=== PATIENT | female | born 1965 | race Caucasian/White ===

== ENCOUNTER 2017-08-30 13:43 | Emergency (ER) | payer OTHER ==
[2017-08-30 13:45] VITALS: BP 133/70; PULSE 104; RESP 15; TEMP 98.4; O2SAT 97
--- NOTE | 2017-08-30 14:46 | PD ---
HPI Chief Complaint: Pain: Acute or Chronic Time Seen by Provider: 14:37 Travel History International Travel<30 days: No Contact w/Intl Traveler<30days: No Traveled to known affect area: No History of Present Illness HPI 52-year-old female with a past medical history of hemorrhoids presents to the emergency department for evaluation of rectal pain. She states she has an upcoming appointment with her primary care physician, but couldn't wait that long. She seized [id number] Preparation H without improvement. Patient denies any fevers or chills. No shortness breath. No nausea, vomiting, diarrhea. She states it hurts bowel movement and when she has "relations". Patient states that she had a colonoscopy done in April 2017 which show she has small internal hemorrhoid. She had no other findings. She states she had a normal Pap smear recently. She is undergoing radiation for breast cancer. No chemotherapy. She has history of hypertension. She has no other medical complaints at this time. She denies any rectal bleeding. Patient states that the pain is not at the anus, but "internal". PFSH Social History Alcohol Use: No Tobacco Use: No Substance Use: No Allergies-Medications (Allergen,Severity, Reaction): Coded Allergies: hydromorphone (Verified Adverse Reaction, Unknown, PALPITATIONS, 08/30/17) Reported Meds & Prescriptions Reported Meds & Active Scripts Active Reported Multi-Vitamin Daily (Multiple Vitamin) 1 Tab Tab 1 Tab PO DAILY Clonazepam 0.5 Mg Tab 0.5 Mg PO DAILY Dicyclomine (Dicyclomine HCl) 10 Mg Cap 10 Mg PO DAILY Review of Systems Except as stated in HPI: all other systems reviewed are Neg Physical Exam Narrative GENERAL: Well-nourished, well-developed female patient, ambulatory. Afebrile. SKIN: Focused skin assessment warm/dry. HEAD: Normocephalic. Atraumatic. EYES: No scleral icterus. No injection or drainage. NECK: Supple, trachea midline. No JVD or lymphadenopathy. CARDIOVASCULAR: Regular rate and rhythm without murmurs, gallops, or rubs. RESPIRATORY: Breath sounds equal bilaterally. No accessory muscle use. Lungs sounds are clear to auscultation. GASTROINTESTINAL: Abdomen soft and nondistended. Patient has lower abdominal pain to palpation. MUSCULOSKELETAL: No cyanosis, or edema. BACK: Nontender without obvious deformity. No CVA tenderness. RECTAL EXAM: No masses or tenderness, stool is brown. This exam was done with CHARLES Mensah, at bedside. Data Data Last Documented VS Vital Signs Date Time Temp Pulse Resp B/P (MAP) Pulse Ox O2 Delivery O2 Flow Rate FiO2 08/30/17 15:13 16 99 Room Air 08/30/17 13:45 98.4 104 Orders Orders Complete Blood Count With Diff (08/30/17 14:46) Comprehensive Metabolic Panel (08/30/17 14:46) Lipase (08/30/17 14:46) Prothrombin Time / Inr (Pt) (08/30/17 14:46) Act Partial Throm Time (Ptt) (08/30/17 14:46) Urinalysis - C+S If Indicated (08/30/17 14:46) Ct Abd/Pel W Iv Contrast(Rout) (08/30/17 14:46) Iv Access Insert/Monitor (08/30/17 14:46) Ecg Monitoring (08/30/17 14:46) Oximetry (08/30/17 14:46) Sodium Chloride 0.9% Flush (Ns Flush) (08/30/17 15:00) Iohexol 350 Inj (Omnipaque 350 Inj) (08/30/17 17:00) Labs Laboratory Tests Test 08/30/17 15:15 White Blood Count 5.4 TH/MM3 Red Blood Count 4.44 MIL/MM3 Hemoglobin 13.5 GM/DL Hematocrit 40.6 % Mean Corpuscular Volume 91.5 FL Mean Corpuscular Hemoglobin 30.4 PG Mean Corpuscular Hemoglobin Concent 33.3 % Red Cell Distribution Width 12.8 % Platelet Count 215 TH/MM3 Mean Platelet Volume 9.6 FL Neutrophils (%) (Auto) 66.3 % Lymphocytes (%) (Auto) 21.2 % Monocytes (%) (Auto) 11.1 % Eosinophils (%) (Auto) 1.0 % Basophils (%) (Auto) 0.4 % Neutrophils # (Auto) 3.6 TH/MM3 Lymphocytes # (Auto) 1.2 TH/MM3 Monocytes # (Auto) 0.6 TH/MM3 Eosinophils # (Auto) 0.1 TH/MM3 Basophils # (Auto) 0.0 TH/MM3 CBC Comment DIFF FINAL Differential Comment Prothrombin Time 10.3 SEC Prothromb Time International Ratio 0.9 RATIO Activated Partial Thromboplast Time 25.2 SEC Urine Color LIGHT-YELLOW Urine Turbidity CLEAR Urine pH 7.5 Urine Specific [place] 1.004 Urine Protein NEG mg/dL Urine Glucose (UA) NEG mg/dL Urine Ketones NEG mg/dL Urine Occult Blood NEG Urine Nitrite NEG Urine Bilirubin NEG Urine Urobilinogen LESS THAN 2.0 MG/DL Urine Leukocyte Esterase NEG Urine RBC 1 /hpf Urine WBC LESS THAN 1 /hpf Urine Squamous Epithelial Cells <1 /hpf Urine Bacteria RARE /hpf Microscopic Urinalysis Comment CULT NOT INDICATED Blood Urea Nitrogen 7 MG/DL Creatinine 0.57 MG/DL Random Glucose 78 MG/DL Total Protein 7.6 GM/DL Albumin 4.0 GM/DL Calcium Level 9.1 MG/DL Alkaline Phosphatase 60 U/L Aspartate Amino Transf (AST/SGOT) 25 U/L Alanine Aminotransferase (ALT/SGPT) 42 U/L Total Bilirubin 0.5 MG/DL Sodium Level 139 MEQ/L Potassium Level 4.2 MEQ/L Chloride Level 104 MEQ/L Carbon Dioxide Level 31.4 MEQ/L Anion Gap 4 MEQ/L Estimat Glomerular Filtration Rate 111 ML/MIN Lipase 480 U/L [facility] Medical Decision Making Medical Screen Exam Complete: Yes Emergency Medical Condition: Yes Medical Record Reviewed: Yes Differential Diagnosis UTI versus ovarian cyst versus diverticulitis versus colitis versus hemorrhoid Narrative Course 52-year-old female presents to the emergency department for evaluation of lower abdominal pain, rectal pain. Patient was originally placed in fast track area taking that she possibly has hemorrhoid. However, the patient is having abdominal pain to palpation. The patient was transferred from fast track to medical pod. CBC, CMP, lipase, UA are ordered and pending. CT abdomen/pelvis with IV contrast is ordered and pending. CBC shows no acute abnormality. CMP shows no acute abnormality. Lipase is 480. UA is negative for acute infection. CT abdomen/pelvis shows horseshoe kidney otherwise unremarkable CT scan of the abdomen and pelvis. Patient is requesting medication for hemorrhoids. Her colonoscopy done in April did show internal hemorrhoid. Patient will be discharged with a prescription for suppository, Proctofoam. She is encouraged to follow-up with her primary care physician. She is to return here for any acute worsening of symptoms. Patient verbalizes agreement and understanding. The patient was discharged in stable condition with instructions, including return instructions and follow up instructions. Diagnosis Primary Impression: Hemorrhoids Qualified Codes: K64.9 - Unspecified hemorrhoids Additional Impression: Abdominal pain Qualified Codes: R10.30 - Lower abdominal pain, unspecified Referrals: Primary Care Physician call for appointment Patient Instructions: Abdominal Pain (ED), General Instructions, Hemorrhoids ( ED) Additional Instructions: Use hydrocortisone suppository as directed as needed. Use Proctofoam as directed as needed. Follow-up with your primary care physician. Return to the emergency department for any acute worsening of symptoms. Med/Other Pt SpecificInfo: Prescription(s) given Scripts Pramoxine Topical (Rectal Foam) (Proctofoam Topical (Rectal Foam)) 1% Foam 1 APPLIC TOPICAL QID Y for ITCHING, #15 GM 0 Refills Prov: Ekaterina Leblanc 08/30/17 Hydrocortisone Supp (Anusol-Hc Supp) 25 Mg Supp 25 MG RECTAL BID, #24 SUPP Prov: Ekaterina Leblanc 08/30/17 Disposition: 01 DISCHARGE HOME Condition: Stable Ekaterina Leblanc Aug 30, 2017 14:46
[2017-08-30] MEDS ORDERED: SODIUM CHLORIDE 0.9% FLUSH 10 ML FLUSH IV FLUSH PRN (15:00)
[2017-08-30 15:13] VITALS: RESP 16; O2SAT 99
[2017-08-30] MEDS ORDERED: MULT-65 PO (15:13)
[2017-08-30] MEDS ORDERED: CLON0.5T PO (15:13)
[2017-08-30] MEDS ORDERED: DICY10CA12 PO (15:13)
[2017-08-30 15:28] LABS: AUTOMATED NEUTROPHIL # 3.6 TH/MM3 (1.8-7.7); BASOPHIL % 0.4 % (0.0-2.0); EOSINOPHIL # 0.1 TH/MM3 (0-0.4); HEMATOCRIT 40.6 % (35.0-46.0); HEMO FLAGS DIFF FINAL; LYMPH % 21.2 % (9.0-44.0); LYMPHOCYTE # 1.2 TH/MM3 (1.0-4.8); MEAN CELL VOLUME 91.5 FL (80.0-100.0); MEAN CORPUSCULAR HEMOGLOBIN 30.4 PG (27.0-34.0); MEAN CORPUSCULAR HGB CONC 33.3 % (32.0-36.0); MONO % 11.1 % (0.0-8.0); NEUT % 66.3 % (16.0-70.0); PLATELET COUNT 215 TH/MM3 (150-450); RED BLOOD COUNT 4.44 MIL/MM3 (4.00-5.30); RED CELL DISTRIBUTION WIDTH 12.8 % (11.6-17.2); WHITE BLOOD COUNT 5.4 TH/MM3 (4.0-11.0)
[2017-08-30 15:39] LABS: APTT (PATIENT) 25.2 SEC (24.3-30.1); INTERNATIONAL NORMALIZED RATIO 0.9 RATIO; PROTHROMBIN TIME - PATIENT 10.3 SEC (9.8-11.6)
[2017-08-30 15:45] LABS: BACTERIA, URINE RARE /hpf; BLOOD, URINE NEG (NEG); GLUCOSE,URINE NEG (NEG); KETONE, URINE NEG (NEG); NITRITE,URINE NEG (NEG); PH, URINE 7.5 (5.0-8.5); SQUAMOUS EPITHELIAL CELL URINE <1 /hpf (0-5); URINE COLOR LIGHT-YELLOW (YELLW/STRAW)
[2017-08-30 15:46] LABS: COMMENT (UR) CULT NOT INDICATED; CULTURE IF INDICATED CULT NOT INDICATED
[2017-08-30 15:54] LABS: ALT (GPT) 42 U/L (10-53); ANION GAP 4 MEQ/L (5-15); AST (GOT) 25 U/L (15-37); BICARBONATE 31.4 MEQ/L (21.0-32.0); BLOOD UREA NITROGEN 7 MG/DL (7-18); CHLORIDE 104 MEQ/L (98-107); GLOMERULAR FILTRATION RATE 111 ML/MIN (>89); POTASSIUM 4.2 MEQ/L (3.5-5.1); SODIUM (NA) 139 MEQ/L (136-145)
[2017-08-30 15:57] LABS: ALKALINE PHOSPHATASE 60 U/L (45-117); TOTAL BILIRUBIN ADULT 0.5 MG/DL (0.2-1.0)
[2017-08-30] MEDS ORDERED: IOHEXOL 350 MG/ML 10 ML VIAL (for RAD DIAG) IVCONTRAST ONE (17:00)
--- NOTE | 2017-08-30 17:23 | RADRPT ---
EXAM DATE/TIME: 08/30/2017 16:50 [place] COMPARISON: No previous studies available for comparison. INDICATIONS : Rectal pain for one week. IV CONTRAST: 72 cc Omnipaque 350 (iohexol) IV ORAL CONTRAST: No oral contrast ingested. RADIATION DOSE: 9.96 CTDIvol (mGy) MEDICAL HISTORY : Carcinoma, breast. SURGICAL HISTORY : None. ENCOUNTER: Initial ACUITY: 1 week PAIN SCALE: 7/10 LOCATION: rectum TECHNIQUE: Volumetric scanning of the abdomen and pelvis was performed. Using automated exposure control and ad justment of the mA and/or kV according to patient size, radiation dose was kept as low as reasonably achievable to obtain optimal diagnostic quality images. DICOM format image data is available electro nically for review and comparison. FINDINGS: LOWER LUNGS: The visualized lower lungs are clear. LIVER: Homogeneous density without lesion. There is no dilation of the biliary tree. No calcified gallston es. SPLEEN: Normal size without lesion. PANCREAS: Within normal limits. KIDNEYS: Horseshoe kidney without evidence of mass or obstruction.. There is no stone or hydronephrosis. ADRENAL GLANDS: Within normal limits. VASCULAR: There is no aortic aneurysm. BOWEL/MESENTERY: The stomach, small bowel, and colon demonstrate no acute abnormality. There is no free intraperitone al air or fluid. ABDOMINAL WALL: Within normal limits. RETROPERITONEUM: There is no lymphadenopathy. BLADDER: No wall thickening or mass. REPRODUCTIVE: Within normal limits. INGUINAL: There is no lymphadenopathy or hernia. MUSCULOSKELETAL: Within normal limits for patient age. CONCLUSION: Horseshoe kidney otherwise unremarkable CT scan of the abdomen and pelvis Roshan Dennis MD on August 30, 2017 at 17:20 Board Certified Radiologist. This report was verified electronically.
[2017-08-30] MEDS ORDERED: ANUS25SU RECTAL (17:49)
[2017-08-30] MEDS ORDERED: PRAM1AER8 TOPICAL (17:49)
[2017-08-30] MEDS ORDERED: KETOROLAC TROMETHAMINE 30 MG/ML (IVP) VIAL IV PUSH ONE (18:15)
--- NOTE | 2017-08-30 19:29 | PD ---
HPI Chief Complaint: Pain: Acute or Chronic Time Seen by Provider: 19:28 Travel History International Travel<30 days: No Contact w/Intl Traveler<30days: No Traveled to known affect area: No PFSH Past Medical History Cancer: Yes (BREAST) Diminished Hearing: No Radiation Therapy: Yes (08/28/17) Tetanus Vaccination: Unknown Influenza Vaccination: No ?: Not Past Surgical History Section: Yes Social History Alcohol Use: No Tobacco Use: No Substance Use: No Allergies-Medications (Allergen,Severity, Reaction): Coded Allergies: hydromorphone (Verified Adverse Reaction, Unknown, PALPITATIONS, 08/30/17) Reported Meds & Prescriptions Reported Meds & Active Scripts Active Proctofoam Topical (Rectal Foam) (Pramoxine Topical (Rectal Foam)) 1% Foam 1 Applic TOPICAL QID PRN Anusol-Hc Supp (Hydrocortisone Supp) 25 Mg Supp 25 Mg RECTAL BID Reported Multi-Vitamin Daily (Multiple Vitamin) 1 Tab Tab 1 Tab PO DAILY Clonazepam 0.5 Mg Tab 0.5 Mg PO DAILY Dicyclomine (Dicyclomine HCl) 10 Mg Cap 10 Mg PO DAILY Data Data Last Documented VS Vital Signs Date Time Temp Pulse Resp B/P (MAP) Pulse Ox O2 Delivery O2 Flow Rate FiO2 08/30/17 19:46 08/30/17 15:13 16 99 Room Air 08/30/17 13:45 98.4 104 Orders Orders Complete Blood Count With Diff (08/30/17 14:46) Comprehensive Metabolic Panel (08/30/17 14:46) Lipase (08/30/17 14:46) Prothrombin Time / Inr (Pt) (08/30/17 14:46) Act Partial Throm Time (Ptt) (08/30/17 14:46) Urinalysis - C+S If Indicated (08/30/17 14:46) Ct Abd/Pel W Iv Contrast(Rout) (08/30/17 14:46) Iv Access Insert/Monitor (08/30/17 14:46) Ecg Monitoring (08/30/17 14:46) Oximetry (08/30/17 14:46) Sodium Chloride 0.9% Flush (Ns Flush) (08/30/17 15:00) Iohexol 350 Inj (Omnipaque 350 Inj) (08/30/17 17:00) Ketorolac Inj (Toradol Inj) (08/30/17 18:15) Labs Laboratory Tests Test 08/30/17 15:15 White Blood Count 5.4 TH/MM3 Red Blood Count 4.44 MIL/MM3 Hemoglobin 13.5 GM/DL Hematocrit 40.6 % Mean Corpuscular Volume 91.5 FL Mean Corpuscular Hemoglobin 30.4 PG Mean Corpuscular Hemoglobin Concent 33.3 % Red Cell Distribution Width 12.8 % Platelet Count 215 TH/MM3 Mean Platelet Volume 9.6 FL Neutrophils (%) (Auto) 66.3 % Lymphocytes (%) (Auto) 21.2 % Monocytes (%) (Auto) 11.1 % Eosinophils (%) (Auto) 1.0 % Basophils (%) (Auto) 0.4 % Neutrophils # (Auto) 3.6 TH/MM3 Lymphocytes # (Auto) 1.2 TH/MM3 Monocytes # (Auto) 0.6 TH/MM3 Eosinophils # (Auto) 0.1 TH/MM3 Basophils # (Auto) 0.0 TH/MM3 CBC Comment DIFF FINAL Differential Comment Prothrombin Time 10.3 SEC Prothromb Time International Ratio 0.9 RATIO Activated Partial Thromboplast Time 25.2 SEC Urine Color LIGHT-YELLOW Urine Turbidity CLEAR Urine pH 7.5 Urine Specific [place] 1.004 Urine Protein NEG mg/dL Urine Glucose (UA) NEG mg/dL Urine Ketones NEG mg/dL Urine Occult Blood NEG Urine Nitrite NEG Urine Bilirubin NEG Urine Urobilinogen LESS THAN 2.0 MG/DL Urine Leukocyte Esterase NEG Urine RBC 1 /hpf Urine WBC LESS THAN 1 /hpf Urine Squamous Epithelial Cells <1 /hpf Urine Bacteria RARE /hpf Microscopic Urinalysis Comment CULT NOT INDICATED Blood Urea Nitrogen 7 MG/DL Creatinine 0.57 MG/DL Random Glucose 78 MG/DL Total Protein 7.6 GM/DL Albumin 4.0 GM/DL Calcium Level 9.1 MG/DL Alkaline Phosphatase 60 U/L Aspartate Amino Transf (AST/SGOT) 25 U/L Alanine Aminotransferase (ALT/SGPT) 42 U/L Total Bilirubin 0.5 MG/DL Sodium Level 139 MEQ/L Potassium Level 4.2 MEQ/L Chloride Level 104 MEQ/L Carbon Dioxide Level 31.4 MEQ/L Anion Gap 4 MEQ/L Estimat Glomerular Filtration Rate 111 ML/MIN Lipase 480 U/L [facility] Medical Decision Making Medical Screen Exam Complete: Yes Emergency Medical Condition: Yes Diagnosis Primary Impression: Hemorrhoids Qualified Codes: K64.9 - Unspecified hemorrhoids Additional Impression: Abdominal pain Qualified Codes: R10.30 - Lower abdominal pain, unspecified Referrals: Mahogany Dixon MD, Ammar MD Ritter,Richard Reed MD Primary Care Physician call for appointment Patient Instructions: General Instructions, Hemorrhoids (ED), Abdominal Pain ( ED) Departure Forms: Tests/Procedures Additional Instructions: Use hydrocortisone suppository as directed as needed. Use Proctofoam as directed as needed. Follow-up with your primary care physician. Return to the emergency department for any acute worsening of symptoms. Scripts Pramoxine Topical (Rectal Foam) (Proctofoam Topical (Rectal Foam)) 1% Foam 1 APPLIC TOPICAL QID Y for ITCHING, #15 GM 0 Refills Prov: Ekaterina Leblanc 08/30/17 Hydrocortisone Supp (Anusol-Hc Supp) 25 Mg Supp 25 MG RECTAL BID, #24 SUPP Prov: Ekaterina Leblanc 08/30/17 Disposition: 01 DISCHARGE HOME Condition: Stable Nelson Maldonado MD Aug 30, 2017 19:29
--- NOTE | 2017-09-01 01:10 | PD ---
Data Data Last Documented VS Vital Signs Date Time Temp Pulse Resp B/P (MAP) Pulse Ox O2 Delivery O2 Flow Rate FiO2 08/30/17 19:46 08/30/17 15:13 16 99 Room Air 08/30/17 13:45 98.4 104 Orders Orders Complete Blood Count With Diff (08/30/17 14:46) Comprehensive Metabolic Panel (08/30/17 14:46) Lipase (08/30/17 14:46) Prothrombin Time / Inr (Pt) (08/30/17 14:46) Act Partial Throm Time (Ptt) (08/30/17 14:46) Urinalysis - C+S If Indicated (08/30/17 14:46) Ct Abd/Pel W Iv Contrast(Rout) (08/30/17 14:46) Iv Access Insert/Monitor (08/30/17 14:46) Ecg Monitoring (08/30/17 14:46) Oximetry (08/30/17 14:46) Sodium Chloride 0.9% Flush (Ns Flush) (08/30/17 15:00) Iohexol 350 Inj (Omnipaque 350 Inj) (08/30/17 17:00) Ketorolac Inj (Toradol Inj) (08/30/17 18:15) Labs Laboratory Tests Test 08/30/17 15:15 White Blood Count 5.4 TH/MM3 Red Blood Count 4.44 MIL/MM3 Hemoglobin 13.5 GM/DL Hematocrit 40.6 % Mean Corpuscular Volume 91.5 FL Mean Corpuscular Hemoglobin 30.4 PG Mean Corpuscular Hemoglobin Concent 33.3 % Red Cell Distribution Width 12.8 % Platelet Count 215 TH/MM3 Mean Platelet Volume 9.6 FL Neutrophils (%) (Auto) 66.3 % Lymphocytes (%) (Auto) 21.2 % Monocytes (%) (Auto) 11.1 % Eosinophils (%) (Auto) 1.0 % Basophils (%) (Auto) 0.4 % Neutrophils # (Auto) 3.6 TH/MM3 Lymphocytes # (Auto) 1.2 TH/MM3 Monocytes # (Auto) 0.6 TH/MM3 Eosinophils # (Auto) 0.1 TH/MM3 Basophils # (Auto) 0.0 TH/MM3 CBC Comment DIFF FINAL Differential Comment Prothrombin Time 10.3 SEC Prothromb Time International Ratio 0.9 RATIO Activated Partial Thromboplast Time 25.2 SEC Urine Color LIGHT-YELLOW Urine Turbidity CLEAR Urine pH 7.5 Urine Specific [place] 1.004 Urine Protein NEG mg/dL Urine Glucose (UA) NEG mg/dL Urine Ketones NEG mg/dL Urine Occult Blood NEG Urine Nitrite NEG Urine Bilirubin NEG Urine Urobilinogen LESS THAN 2.0 MG/DL Urine Leukocyte Esterase NEG Urine RBC 1 /hpf Urine WBC LESS THAN 1 /hpf Urine Squamous Epithelial Cells <1 /hpf Urine Bacteria RARE /hpf Microscopic Urinalysis Comment CULT NOT INDICATED Blood Urea Nitrogen 7 MG/DL Creatinine 0.57 MG/DL Random Glucose 78 MG/DL Total Protein 7.6 GM/DL Albumin 4.0 GM/DL Calcium Level 9.1 MG/DL Alkaline Phosphatase 60 U/L Aspartate Amino Transf (AST/SGOT) 25 U/L Alanine Aminotransferase (ALT/SGPT) 42 U/L Total Bilirubin 0.5 MG/DL Sodium Level 139 MEQ/L Potassium Level 4.2 MEQ/L Chloride Level 104 MEQ/L Carbon Dioxide Level 31.4 MEQ/L Anion Gap 4 MEQ/L Estimat Glomerular Filtration Rate 111 ML/MIN Lipase 480 U/L MDM Supervised Visit with PHYLICIA: Yes Narrative Course I, Dr. Maldonado, have reviewed the advance practice practitioner's documentation and am in agreement, met with the patient face to face, made the diagnosis, and the medical decision making was done by me. *My assessment and Findings: Patient seen and examined by me in addition to Ekaterina ARAUJO. Patient had appropriate workup including CAT scan of her abdomen for rectal pain. Patient states she's been told she's had internal hemorrhoids but has not been able to follow-up. She is normally followed in [place] but is currently doing radiation therapy for breast cancer here in [place]. She has not established any other physicians here. After being told that she had internal hemorrhoid she's not been able to follow-up with colorectal surgeon, she is asked to see the physician to see what was next for her treatment plan. Patient also states she's been having some dyspareunia for the past few months. She wonders if this is related to her internal hemorrhoids. I rectal exam the patient under supervision from female nurse mortar maker, there is small internal hemorrhoid but fairly nontender exam, fecal occult negative. Patient offered vaginal exam and declined. I have discussed with the patient symptomatic management as she can follow-up with physicians, given that she is doing radiation here I have suggested several referrals for her and she is agreeable. Referred the patient to several specialists were recreation activities coordinator. She is stable for discharge. Diagnosis Primary Impression: Hemorrhoids Additional Impression: Abdominal pain Referrals: Mahogany Dixon MD, Ammar MD Ritter,Richard Reed MD Primary Care Physician call for appointment Patient Instructions: General Instructions, Hemorrhoids (ED), Abdominal Pain ( ED) Departure Forms: Tests/Procedures Additional Instruction: Use hydrocortisone suppository as directed as needed. Use Proctofoam as directed as needed. Follow-up with your primary care physician. Return to the emergency department for any acute worsening of symptoms. Scripts Pramoxine Topical (Rectal Foam) (Proctofoam Topical (Rectal Foam)) 1% Foam 1 APPLIC TOPICAL QID Y for ITCHING, #15 GM 0 Refills Prov: Ekaterina Leblanc 08/30/17 Hydrocortisone Supp (Anusol-Hc Supp) 25 Mg Supp 25 MG RECTAL BID, #24 SUPP Prov: Ekaterina Leblanc 08/30/17 Disposition: 01 DISCHARGE HOME Condition: Stable Nelson Maldonado MD Sep 01, 2017 01:10
== END 2017-08-30 20:00 | disposition home or self-care (01) ==
LOC: NEPD 13:43
DX: K64.9 Unspecified hemorrhoids (principal); R10.30 Lower abdominal pain, unspecified
CPT/HCPCS: 74177; 80053; 81001; 83690; 85025; 85610; 85730; 96374; 99285; J1885; Q9967